=== PATIENT | female | born 1950 | race Caucasian/White ===

== ENCOUNTER 2018-07-23 15:53 | Emergency (ER) | payer MEDICARE ==
[~2018-07-23] VITALS: Ht 157.5 cm; Wt 84.1 kg
[2018-07-23 23:36] VITALS: BP 124/76
== END 2018-07-23 23:43 | disposition home or self-care (01) ==
LOC: EMS 15:54
DX: F03.90 Unspecified dementia, unspecified severity, without behavioral disturbance, psychotic disturbance, mood disturbance, and anxiety (principal); Z59.0 Homelessness